=== PATIENT | male | born 1980 | race Caucasian/White ===

== ENCOUNTER 2017-03-25 14:32 | Emergency (ER) | payer MEDICAID ==
[2017-03-25 14:59] VITALS: RESP 16; TEMP 98.2; O2SAT 98
--- NOTE | 2017-03-25 15:02 | EDPHY ---
H & P Stated Complaint: hives and swelling HPI/ROS: HPI CHIEF COMPLAINT: Allergic reaction HISTORY OF PRESENT ILLNESS: Patient otherwise healthy 36-year-old male no significant medical history does not take any daily medications no surgical history presents emergency room with urticaria diffuse throughout his body. He states this started yesterday. He noticed a lesion behind his left knee. Does not remember any particular innocuous. He denies chest pain, shortness of breath, nausea, vomiting, abdominal cramps, trouble swallowing. Tells me that the rash itches. There is no mucosal lesions. No skin sloughing. Denies new medications. Past Medical History: No medical history Past Surgical History: No surgical history Social History: Denies daily use of drugs alcohol tobacco products Family History: Noncontributory ROS REVIEW OF SYSTEMS: A comprehensive 10 point review of systems is otherwise negative aside from elements mentioned in the history of present illness. Exam Constitutional triage nursing summary reviewed, vital signs reviewed, awake/ alert. Eyes normal conjunctivae and sclera, EOMI, PERRLA. HENT normal inspection, atraumatic, moist mucus membranes, no epistaxis, neck supple/ no meningismus, no raccoon eyes. Respiratory clear to auscultation bilaterally, normal breath sounds, no respiratory distress, no wheezing. Cardiovascular rate normal, regular rhythm, no murmur, no edema, distal pulses normal. Gastrointestinal soft, non-tender, no rebound, no guarding, normal bowel sounds, no distension, no pulsatile mass. Genitourinary no CVA tenderness. Musculoskeletal no midline vertebral tenderness, full range of motion, no calf swelling, no tenderness of extremities, no meningismus, good pulses, neurovascularly intact. Skin diffuse scattered urticaria. No petechiae and no purpura. No skin sloughing. No mucosal lesions. Neurologic awake, alert and oriented x 3, AAOx3, moves all 4 extremities equally, motor intact, sensory intact, CN II-XII intact, normal cerebellar, normal vision, normal speech. Psychiatric normal mood/affect. Heme/Lymph/Immune no lymphadenopathy. Differential Diagnosis: Includes but is not limited to in a particular order allergic reaction, contact dermatitis, vasculitis, anaphylaxis Medical Decision Making: This patient appears well here in the emergency room nontoxic no trouble swallowing no stridor no trouble breathing does have rash that is consistent with urticaria. This been going on for over 24 hours. He has had no airway involvement. Unclear Inoculous. Will place patient on prednisone, Benadryl, Pepcid here in the emergency room. Will treat with prednisone for 5 days Benadryl and Pepcid. He understands follow-up with his primary care doctor. I did give him strict return precautions he understands if he develops further allergic reaction symptoms this includes trouble breathing, trouble swallowing, nausea vomiting diarrhea abdominal cramps chest pain or does not feel well or is rash progresses he has seek medical attention including in the emergency room. He understands. Re-evaluation: Source: Patient - Personal History Current Tetanus/Diphtheria Vaccine: Yes Current Tetanus Diphtheria and Acellular Pertussis (TDAP): Yes Tetanus Vaccine Date: last 10 years - Medical/Surgical History Hx Asthma: No Hx Chronic Respiratory Disease: No Hx Diabetes: No Hx Cardiac Disease: No Hx Renal Disease: No Hx Cirrhosis: No Hx Alcoholism: No Hx HIV/AIDS: No Hx Splenectomy or Spleen Trauma: No Other PMH: wisdom teeth extractions years ago - Social History Smoking Status: Never smoked Constitutional: Initial Vital Signs Temperature (C) 36.8 C 03/25/17 14:57 Heart Rate 87 03/25/17 14:57 Respiratory Rate 16 03/25/17 14:57 Blood Pressure 154/87 H 03/25/17 14:57 O2 Sat (%) 98 03/25/17 14:57 O2 Delivery Mode Room Air Departure - Departure Disposition: Home, Routine, Self-Care Clinical Impression: Urticaria Condition: Good Instructions: Urticaria (ED), Allergies (ED), Anaphylaxis (ED) Additional Instructions: 1. Return emergency room if he develops worsening symptoms includes trouble breathing, trouble swallowing, worsening rash fever any questions or concerns. 2. Please follow up with your primary care doctor. Referrals: Nica Corbin MD [Primary Care Provider] - As per Instructions
[2017-03-25] MEDS ORDERED: FAMOTIDINE 20 MG TAB PO ONE (15:09)
[2017-03-25] MEDS ORDERED: diphenhydrAMINE 25 MG CAP PO ONE (15:09)
[2017-03-25] MEDS ORDERED: predniSONE 20 MG TAB PO ONE (15:09)
[2017-03-25 15:34] VITALS: BP 147/84; PULSE 80
== END 2017-03-25 15:27 | disposition home or self-care (01) ==
LOC: CED 14:32
DX: L50.9 Urticaria, unspecified (principal)